=== PATIENT | female | born 1955 | race Caucasian/White ===

== ENCOUNTER 2022-05-13 11:09 | Emergency (ER) | payer BC, MEDICARE ==
[2022-05-13] MEDS ORDERED: Acetaminophen/Codeine 300-30 MG Tab PO ONE (11:43)
[2022-05-13] MEDS ORDERED: Bacitracin Oint 1 GM U/D Packet TOP ONE (11:43)
[2022-05-13] MEDS ORDERED: Diphtheria,Pertussis(Acell),Tetanus Vaccine 0.5 ML Syringe IM ONE (12:13)
== END 2022-05-13 13:03 | disposition home or self-care (01) ==
LOC: MW.ED 11:09 → MERGE 11:09 → MW.ED 13:03
DX: S52.502A Unspecified fracture of the lower end of left radius, initial encounter for closed fracture (principal); S52.612A Displaced fracture of left ulna styloid process, initial encounter for closed fracture; Z23 Encounter for immunization; Z90.49 Acquired absence of other specified parts of digestive tract; Z91.048 Other nonmedicinal substance allergy status; Z88.6 Allergy status to analgesic agent; Z91.040 Latex allergy status; W01.10XA Fall on same level from slipping, tripping and stumbling with subsequent striking against unspecified object, initial encounter
CPT/HCPCS: 29125; 73110-26-LT; 73110-LT; 90471; 90715; 99283-25